=== PATIENT | male | born 1985 | race American Indian/Alaskan Native ===

== ENCOUNTER 2021-05-07 09:31 | Day surgery (SDC) | payer OTHER ==
[~2021-05-07 09:31] MED LIST: SODIUM CHLORIDE 0.9% 1000 ML 1,000 ML IV SCH
--- NOTE | 2021-05-07 11:00 | Anesthesia Day of Surgery ---
Anesthesia Day of Surgery - Day of Surgery Patient Examined: Yes Patient H&P Reviewed: Yes Patient is NPO: Yes
--- NOTE | 2021-05-07 11:00 | Anesthesia Consultation ---
Anesthesia Consult and Med Hx Date of service: 05/07/21 - Airway Anesthetic Teeth Evaluation: Good ROM Head & Neck: Adequate Mental/Hyoid Distance: Adequate Mallampati Class: Class III Intubation Access Assessment: Possibly Difficult - Pre-Operative Health Status ASA Pre-Surgery Classification: ASA1 Proposed Anesthetic Plan: MAC - Pulmonary Hx Smoking: No Hx Respiratory Symptoms: No - Cardiovascular System Hx Hypertension: No - Central Nervous System CVA: No - Endocrine Hx Renal Disease: No Hx Liver Disease: No Hx Insulin Dependent Diabetes: No Hx Non-Insulin Dependent Diabetes: No Hx Thyroid Disease: No
[2021-05-07] MEDS ORDERED: LIDOCAINE MPF (2%) 20 MG/1 ML VIAL 5 ML ONE (11:10)
[2021-05-07] MEDS ORDERED: propofoL 200 MG/20 ML VIAL IV ONE ×2 (11:10→11:36)
--- NOTE | 2021-05-07 11:59 | Procedure Note ---
Date of procedure: 05/07/21 Pre-op diagnosis: Lower GI Bleeding/ F/H/O Cancer (Colon Cancer-sister at a young age) Post-op diagnosis: other (No Colon Polyps noted/ Few,Left Colon Diverticuli,(possible source of GI bleeding)/ Mild to Moderate Internal Hemorrhoids/ R/O Microscopic Colitis and R/o Ileitis) Procedure: Colonoscopy with biopsy Anesthesia: [facility] Surgeon: KAREN PATTEN Estimated blood loss: minimal Pathology: list Specimen disposition: to lab Condition: stable Disposition: same day (Avoid aspirin and NSAUD for 5 days; otherwise resume home medication and encourage fiber intake and OTC Hemorrhoidal medication.)
--- NOTE | 2021-05-07 12:21 | Operative Report ---
DATE OF SURGERY: 05/07/2021 PROCEDURE PERFORMED: Colonoscopy with biopsy. INDICATIONS: This is a 36-year-old -[place] gentleman in otherwise good health, but does have a strong family history of colon cancer, the patient's sister had colon cancer. Recently, the patient had noticed some lower GI bleeding. Colonoscopy was done to assess for the source of the bleeding. DESCRIPTION OF PROCEDURE: Procedure was done after getting informed consent with MAC anesthesia. Initial rectal examination was unremarkable. Instrument was passed through the rectum onto the cecum, which was identified with ileocecal valve and the appendiceal orifice. Visualization was fair to good. The terminal ileum was intubated, showed normal mucosa. Biopsy was done to rule out for possible ileitis. Cecum, ascending colon and transverse colon showed normal mucosa. There were a few diverticula noted in the left colon, which may have been the source of the bleeding, but did not appear to show any bleeding at present. Random biopsies were done throughout the colon to rule out for microscopic colitis and the rectum showed some [id number] internal hemorrhoid on the retroverted view. There was minimal bleeding associated with the procedure. No complications associated with the procedure. ASSESSMENT: History of lower gastrointestinal bleeding; family history of colon cancer, sister had colon cancer; few left colon diverticula, possible source of the patient's gastrointestinal bleed; rule out microscopic colitis; rule out ileitis and [id number] internal hemorrhoid. PLAN: The patient will be asked to take some [id number] hemorrhoidal medication, also to take fiber, avoid aspirin and aspirin-related products and follow up in the office in 1-2 weeks' time. TID: [id number] RECEIPT: [id number] EVER/GERARDO
--- NOTE | 2021-05-07 12:39 | Post Anesthesia Evaluation ---
- Post Anesthesia Evaluation Patient Participated: Yes Airway Patent: Yes Stable Respiratory Function: Yes Nausea/Vomiting: No Temp > 96.8F: Yes Pain Manageable: Yes Adequeate Hydration: Yes Anesthesia Complications: No
[2021-05-07 15:47] VITALS: BP 106/68
== END 2021-05-07 12:20 | disposition home or self-care (01) ==
LOC: GIO 09:31
DX: K62.5 Hemorrhage of anus and rectum (principal); K52.9 Noninfective gastroenteritis and colitis, unspecified; K57.30 Diverticulosis of large intestine without perforation or abscess without bleeding; K64.8 Other hemorrhoids; K63.89 Other specified diseases of intestine; Z80.0 Family history of malignant neoplasm of digestive organs; Z79.899 Other long term (current) drug therapy
CPT/HCPCS: 45380; 88305; J2704; J3490; J7030; J7120; Q0162